=== PATIENT | male | born 2000 | race Caucasian/White ===

== ENCOUNTER 2024-05-30 17:33 | Emergency (ER) | payer BC ==
[~2024-05-30] VITALS: Ht 172.7 cm; Wt 70.3 kg
[2024-05-30] MEDS ORDERED: Amoxicillin/Clavulanate Pota 875 MG TAB PO ONE (17:55)
[2024-05-30] MEDS ORDERED: Tdap Vaccine 0.5 ML SYR (Adult Vaccine) IM ONE (17:55)
[2024-05-30] MEDS ORDERED: AMOX-CLAV 875-1 EACH PO (18:12)
== END 2024-05-30 18:15 | disposition home or self-care (01) ==
LOC: ED 17:33 → EDBD 17:38 → ED 18:15
DX: S61.021A Laceration with foreign body of right thumb without damage to nail, initial encounter (principal); W22.8XXA Striking against or struck by other objects, initial encounter; Y93.89 Activity, other specified; Y92.89 Other specified places as the place of occurrence of the external cause; Y99.8 Other external cause status